=== PATIENT | male | born 2000 | race Caucasian/White ===

== ENCOUNTER 2022-02-12 16:22 | Emergency (ER) | payer OTHER ==
[~2022-02-12] VITALS: Ht 177.8 cm; Wt 66.2 kg
[2022-02-12 16:32] VITALS: BP 116/63
--- NOTE | 2022-02-12 17:00 | NUR ---
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 TDAP 2018 NKA PMH: DENIES
[2022-02-12] MEDS ORDERED: IBUP-2213 PO (18:56)
--- NOTE | 2022-02-12 19:04 | NUR ---
Patient discharged with v/s stable. Written and verbal after care instructions ABOUT BLEPHARITIS given and explained. Patient alert, oriented and verbalized understanding of instructions. Ambulatory with steady gait. All questions addressed prior to discharge. ID band removed. Patient advised to follow up with . Rx of MOTRIN given. Patient educated on indication of medication including possible reaction and side effects. Opportunity to ask questions provided and answered.
== END 2022-02-12 19:04 | disposition home or self-care (01) ==
LOC: MED 16:22
DX: S09.93XA Unspecified injury of face, initial encounter (principal); H01.002 Unspecified blepharitis right lower eyelid; X58.XXXA Exposure to other specified factors, initial encounter; Y93.89 Activity, other specified; Y92.89 Other specified places as the place of occurrence of the external cause; Y99.8 Other external cause status
CPT/HCPCS: 99282